=== PATIENT | female | born 1970 | race Caucasian/White ===

== ENCOUNTER 2016-05-06 12:00 | Emergency (ER) | payer OTHER ==
[~2016-05-06] VITALS: Ht 160 cm; Wt 71.2 kg
[~2016-05-06 12:00] MED LIST: COLACE100 MG PO; COUMADIN 5 MG TA5 MG PO; COUMADIN5 M2 PO; CYCLOBENZAPRINE5 M2 PO; DOCUSATE SODIU100 M3 PO; FIORICET 50-301 EACH PO; HYDROCODONE/ACE1 TA1 PO; IRON SUPPLEMEN325 MG PO; MIRALAX17 GM PO; MOTRIN 600 MG600 MG PO; MOTRIN800 MG PO; MUCINEX1200 MG PO; MULTI-DAY VITA1 EACH PO; NAPROSYN500 M1 PO; NEXPLANON68 M1; OXYCODONE AND A1 TA2 PO; OXYCODONE HCL10 M2 PO; OXYCODONE HCL5 M1 PO; OXYCODONE5 MG PO; PERCOCET 325 MG1 TA2 PO; PERCOCET 5-3251 EACH PO; TORADOL10 MG PO; TRAMADOL50 MG PO; VALIUM5 M1 PO; VALIUM5 M2 PO
--- NOTE | 2016-05-06 13:44 | ED GI/GU/ABDOMINAL COMPLAINT ---
History of Present Illness General Chief Complaint: Abdominal Pain/Flank Pain Stated Complaint: KIDNEY PAIN, LT HIP PAIN Source: patient, old records Exam Limitations: no limitations Vital Signs & Intake/Output Vital Signs & Intake/Output Vital Signs Date Time Temp Pulse Resp B/P Pulse O2 O2 Flow FiO2 Ox Delivery Rate 05/06 1424 97.7 88 18 140/78 98 Room Air 05/06 1215 98.0 95 16 145/86 97 Room Air Allergies Coded Allergies: NO KNOWN ALLERGIES (11/03/15) Reconcile Medications Etonogestrel (Nexplanon) 68 MG IMPLANT CONTROL (Reported) Oxycodone HCl/Acetaminophen (Percocet 5-325 MG Tablet) 5 MG-325 MG TABLET 1 TAB PO TID PRN pain Pantoprazole Sodium 40 MG TABLET. 1 TAB PO DAILY GI (Reported) Triage Note: 45 Y/O FEMALE C/O L HIP PAIN (HX HIP REPLACEMENT ) AND "KIDNEY PAIN" (HX "KIDNEY INFECTION" IN FEBRUARY). STATES SHE FINISHED ANTIBIOTICS FOR KIDNEY INFECTION IN FEBRUARY AND FINISHED MEDS HOWEVER STATES SHE FELT SYMPTOMS WERE COMING BACK AND URGENT CARE TOLD HER TESTS WERE NEGATIVE. DENIES URINARY SYMPTOMS OTHER THAN INCREASE IN FREQUENCY. Triage Nurses Notes Reviewed? yes ? n Is pt currently ? No HPI: 45 yo female with hx of HTN, OA, smoker for 30 pack years, hx of pyelo dx by urgent care in february, L LAUREEN in May of 2015, was doing well then started co L hip pain for 3 weeks , taking hydrocodone for this, also co upper abd pain for about 1 weeks and urinary frequency. no dysuria, no diarrhea, no vaginal discharge. last BM was this morning and regular. She has difficult time lifting the leg off the bed, she is not limping, she points to the left groin where she has pain. She did not take her Vicodin today as it is bothering her stomach. Pain is moderate (ELAINE BHATT) Past History Travel History Traveled to [place] past 21 day No Medical History Any Pertinent Medical History? 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 No (ELAINE BHATT) Review of Systems Review of Systems Constitutional: Reports: see HPI. Denies: chills, diaphoresis, fever, malaise. EENTM: Reports: no symptoms. Respiratory: Reports: no symptoms. Cardiovascular: Reports: no symptoms. GI: Reports: no symptoms. Genitourinary: Reports: no symptoms. Musculoskeletal: Reports: see HPI. Skin: Reports: no symptoms. Neurological/Psychological: Reports: no symptoms. Hematologic/Endocrine: Reports: no symptoms. Immunologic/Allergic: Reports: no symptoms. All Other Systems: Reviewed and Negative (ELAINE BHATT) Physical Exam Physical Exam Respiratory: normal breath sounds, chest non-tender, no respiratory distress Cardiovascular: regular rate/rhythm Gastrointestinal: normal bowel sounds, soft, non-tender, no organomegaly, no CVA tenderness Comments: Well-developed well-nourished no apparent distress. HEENT: Atraumatic, extraocular motion intact Neck: Supple, no lymphadenopathy Back: Nontender Respiratory: No respiratory distress Extremities: No edema, full range of motion Neuro: Alert and oriented x3 Psych: Mood affect normal, normal memory normal judgment. Skin: Warm and dry, no rash on exposed skin Left hip exam, mild tenderness over the anterior groin region. There is pain with forward elevation of the hip, she cannot lift leg off the bed with the knee extended due to pain and weakness. Range of motion is full, mild pain with passive hip flexion. Neurovascularly intact. Core Measures ACS in differential dx? No Severe Sepsis Present: No Septic Shock Present: No (ELAINE BHATT) Progress Differential Diagnosis: AAA, AMI, appendicitis, biliary colic, bowel obstruction , colon cancer, cholecystitis, diverticulitis, endometritis, esophageal varices, gastritis, hepatitis, hernia, hemorrhoids, ischemic bowel, inflamm bowel dis, kidney stone, Ninfa-Michael tear, ovarian cyst, ovarian torsion, pancreatitis, PID/cervicitis, peptic ulcer, PUD/GERD, perforated viscous, SBO, UTI/pyelo, hip loosening, infection of hardware or septic joint. Plan of Care: Orders Procedure Date/time Status CULTURE,URINE 05/06 1217 Active URINALYSIS 05/06 1217 Complete Laboratory Tests 05/06/16 1321: Urine Color YEL, Urine Clarity CLEAR, Urine pH 6.0, Ur Specific [place] 1.010, Urine Protein NEG, Urine Ketones NEG, Urine Nitrite NEG, Urine Bilirubin NEG, Urine Urobilinogen 0.2, Ur Leukocyte Esterase NEG, Ur Microscopic SEDIMENT EXAMINED, Urine RBC RARE, Ur Epithelial Cells RARE, Urine Mucus RARE, Urine Hemoglobin TRACE-INTACT, Urine Glucose NEG Microbiology 05/06 1321 URINE ROUT: Urine Culture - RECD Diagnostic Imaging: Viewed by Me: Radiology Read. Discussed w/RAD: Radiology Read. Radiology Impression: PATIENT: CHARI EMANUEL PRESENT AGE: 45 PATIENT ACCOUNT NO: [id number] : 71 LOCATION: [facility] ORDERING PHYSICIAN: ELAINE DUENAS SERVICE DATE: 05/06/16 EXAM TYPE: RAD - XRY-HIP 2-3 VIEWS, LEFT EXAMINATION: XR HIP, LEFT CLINICAL INFORMATION: Left hip pain. Groin pain. Status post total left hip replacement. COMPARISON: Left hip x -ray of 05/29/2015 and 11/16/2013. TECHNIQUE: Two views of the left hip. FINDINGS: The left total hip arthroplasty hardware is in place with expected positioning. No evidence of periprosthetic lucency suspicious for loosening or periprosthetic fracture. No evidence of hardware fracture. No soft tissue abnormality noted. Mild enthesopathic changes are noted from the iliac spine. IMPRESSION: Stable appearance of the left total hip arthroplasty hardware without evidence of hardware loosening or periprosthetic fracture. DICTATED BY: ESTEPHANIA MORA,ANAL DATE/TIME DICTATED:05/06/16 / 1513 HOME CARE MUSIC THERAPIST:RAD Initial ED EKG: none Comments: Patient requested Percocet for her acute hip pain. We'll obtain x-ray and urinalysis Urinalysis is unremarkable. Left hip x-ray is unremarkable as well. Patient reevaluated and is feeling better after the Percocet. She prefers Percocet over with her pain management doctor has been giving her, Vicodin, and is requesting medication for the next few days. She likely has a muscle strain of the left hip and was recommended to rest and follow-up with her doctor if symptoms continue. (ELAINE BHATT) Departure Departure Disposition: HOME OR SELF CARE Condition: Stable Clinical Impression Primary Impression: Strain of hip flexor Qualifiers: Encounter type: initial encounter Laterality: left Qualified Code: S76.012A - Strain of muscle, fascia and tendon of left hip, initial encounter Referrals: ALICE BUSTAMANTE DO (PCP/Family) Additional Instructions: Take Percocet as needed for pain, rest, avoid excessive strenuous activity for the next 1-2 weeks. Follow-up with your doctor if no better Departure Forms: Customer Survey General Discharge Information Prescriptions: Current Visit Scripts Oxycodone HCl/Acetaminophen (Percocet 5-325 MG Tablet) 1 TAB PO TID PRN pain #10 TAB (ELAINE BHATT) PA/AGRICULTURAL SERVICES DIRECTOR Co-Sign Statement Statement: ED Attending supervision documentation- [] I saw and evaluated the patient. I have also reviewed all the pertinent lab results and diagnostic results. I agree with the findings and the plan of care as documented in the PA's/AGRICULTURAL SERVICES DIRECTOR's documentation. [X] I have reviewed the ED Record and agree with the PA's/AGRICULTURAL SERVICES DIRECTOR's documentation. [] Additions or exceptions (if any) to the PAs/AGRICULTURAL SERVICES DIRECTOR's note and plan are summarized below: [] (KIZZY WILKINSON DO
[2016-05-06] MEDS ORDERED: PANTOPRAZOLE SO40 M1 PO (13:54)
[2016-05-06 14:24] VITALS: BP 140/78
[2016-05-06] MEDS ORDERED: PERCOCET 5-3251 EACH PO (15:24)
--- NOTE | 2016-05-06 15:28 | RADIOLOGY REPORT ---
EXAMINATION: XR HIP, LEFT CLINICAL INFORMATION: Left hip pain. Groin pain. Status post total left hip replacement. COMPARISON: Left hip x-ray of 05/29/2015 and 11/16/2013. TECHNIQUE: Two views of the left hip. FINDINGS: The left total hip arthroplasty hardware is in place with expected positioning. No evidence of periprosthetic lucency suspicious for loosening or periprosthetic fracture. No evidence of hardware fracture. No soft tissue abnormality noted. Mild enthesopathic changes are noted from the iliac spine. IMPRESSION: Stable appearance of the left total hip arthroplasty hardware without evidence of hardware loosening or periprosthetic fracture.
== END 2016-05-06 15:33 ==
LOC: ERH 12:00
DX: S76.012A Strain of muscle, fascia and tendon of left hip, initial encounter (principal); R10.10 Upper abdominal pain, unspecified
CPT/HCPCS: 73502-LT; 81001; 87086